=== PATIENT | male | born 1950 | race Caucasian/White ===

== ENCOUNTER → 2020-09-22 13:19 | Outpatient (BNVA) | payer MEDICARE, SELFPAY | PROVIDERS: PCP Family Medicine; Visit Provider Urology | DX: N40.1 Benign prostatic hyperplasia with lower urinary tract symptoms (principal); N13.8 Other obstructive and reflux uropathy; R35.0 Frequency of micturition; R35.1 Nocturia; Z79.899 Other long term (current) drug therapy | CPT/HCPCS: 51798; 99212 ==

== ENCOUNTER → 2020-10-20 13:01 | Outpatient (BNVA) | payer MEDICARE, SELFPAY | PROVIDERS: PCP Family Medicine; Visit Provider Urology | DX: R82.90 Unspecified abnormal findings in urine (principal) | CPT/HCPCS: 52000; 81002; 99212 ==

== ENCOUNTER → 2021-11-04 11:24 | Outpatient (BNVA) | payer MEDICARE, SELFPAY | PROVIDERS: PCP Family Medicine; Visit Provider Urology | DX: N40.1 Benign prostatic hyperplasia with lower urinary tract symptoms (principal); R35.1 Nocturia | CPT/HCPCS: Q3014 ==

== ENCOUNTER → 2022-11-03 13:05 | Outpatient (BNVA) | payer MEDICARE, SELFPAY | PROVIDERS: PCP Family Medicine; Visit Provider Urology | DX: N40.1 Benign prostatic hyperplasia with lower urinary tract symptoms (principal); R35.1 Nocturia; N48.6 Induration penis plastica | CPT/HCPCS: Q3014 ==

== ENCOUNTER 2023-10-24 08:07 | Outpatient (REF) | payer MEDICARE, SELFPAY ==
[2023-10-24 12:09] LABS: Prostate Specific Antigen 1.06 ng/mL (<0.05-4.0)
== END 2023-10-24 08:08 | disposition home or self-care (01) ==
LOC: HO.WFDLDS 08:07
PROVIDERS: Visit Provider Urology
DX: N40.1 Benign prostatic hyperplasia with lower urinary tract symptoms (principal); Z12.5 Encounter for screening for malignant neoplasm of prostate
CPT/HCPCS: 36415; 84153

== ENCOUNTER 2023-10-30 13:15 | Outpatient (AMB) | payer MEDICARE, SELFPAY ==
--- NOTE | 2023-10-30 13:26 | A.OFFVIS_ITS ---
Intake Intake Visit Reasons: 1Y PSA(set) Intake Note: Patient is Present for Follow Up PSA/PVR Urology Medication: Finasteride (Patient is no longer on terazosin due to making him dizzy) Antibiotic Allergies: None Blood Thinners: Xarelto PVR: 14 Compliants: none Allergies No Known Allergies Allergy (Verified 10/30/23 13:33) HPI HPI Comments History of Present Illness Details Hugh is a very pleasant male. He is a patient of Dr. Maya. Seen for the following urologic conditions - lower urinary tract symptoms - red scrotum syndrome Twelve month follow-up Feels he is adequately emptying Does have weakness of stream Not sufficiently bothered to warrant intervention currently Did not tolerate alfuzosin secondary to dizziness Lower Urinary Tract Symptoms:?Current visit is for further evaluation of, lower urinary tract symptoms, predominate irritative symptoms.?Current treatment includes medication, none ?Prior treatments include medication, alpha blockers, flomax/tamsulosin.?Prostate Symptom Score Moderate (9-19), Bother 4 ? 07/06 , Mild (0-8), Bother 3.?Symptoms include frequency, urgency, nocturia (>2) - every hour, and are progressing ? 07/06 , weak stream, nocturia (>2), and are stable.?PSA 10/05 2.1 ? 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 January 2016 .?Associated symptoms include None ?Physical exam findings include Improved erythema off penile shaft skin. Scrotal skin still has some erythema but this is slowly improving with use of immunosuppressant cream PFSH Medical History Peyronie's disease Rosacea History of kidney stones HTN (hypertension) Hyperlipidemia Prostatitis, chronic Nocturia Benign prostatic hyperplasia with lower urinary tract symptoms Scrotal erythema Scrotal pain Scrotal pruritus Surgical History History of surgery Review of Systems Const Denies chills and Denies fever(s) Card Reports no additional complaints and Denies syncope Resp Denies cough GI Denies abdominal pain and Denies heartburn Reports as per HPI and Denies change in libido Neuro Denies syncope Psych Denies change in libido Endo Denies change in libido Physical Exam Const General: cooperative, healthy appearing, comfortable and no acute distress Orientation/consciousness: patient oriented x3 HEENT Face and sinus: Yes normal facial exam Mouth: moist mucous membranes Neck Neck: Yes normal visual inspection, Yes full ROM and Yes trachea midline Chest Chest palpation & inspection: normal inspection of the chest Resp Effort & Inspection: normal respiratory effort, able to speak in complete sentences and no respiratory distress GI Inspection: Yes normal to inspection Back/Spine/Pelvis Cervical Spine: normal cervical lordosis Thoracic/Lumbar Spine: thoracic and lumbar spine normal to inspection Skin General skin exam: no rashes or lesions noted Neuro General: patient oriented x3, gait normal, tone normal and moves all extremities Extrem General: Yes normal to inspection and Yes capillary refill normal Office Procedures Post Void Residual Post Residual Void Post Void Residual (PVR): 14 04062-Cqyh Void Residual by ultrasound Results AMB Urinalysis, Automated UA Leukoctes 0 Sary/uL Last Edit by JOSHUA Bravo on 10/30/23 13:46 UA Nitrite Negative Last Edit by JOSHUA Bravo on 10/30/23 13:46 UA Urobilinogen 0.2 mg/dL Last Edit by JOSHUA Bravo on 10/30/23 13:4 6 UA Protein 0 mg/dL Last Edit by JOSHUA Bravo on 10/30/23 13:46 UA pH 6.0 Last Edit by JOSHUA Bravo on 10/30/23 13:46 UA Blood 0 Luis/uL Last Edit by JOSHUA Bravo on 10/30/23 13:46 UA Specific [place] 1.015 Last Edit by JOSHUA Bravo on 10/30/23 13: 46 UA Ketone Negative Last Edit by JOSHUA Bravo on 10/30/23 13:46 UA Bilirubin 0 mg/dL Last Edit by JOSHUA Bravo on 10/30/23 13:46 UA Glucose 0 mg/dL Last Edit by JOSHUA Bravo on 10/30/23 13:46 Assessment & Plan Assessment & Plan (1) Peyronie's disease: Code(s): N48.6 - Induration penis plastica (2) BPH loc w urin obs/LUTS: Code(s): N40.1 - Benign prostatic hyperplasia with lower urinary tract symptoms Plan Twelve month follow-up Orders: Orders AMB Post Void Residual by ultrasound Today N40.1 - Benign prostatic hyperplasia with lower urinary tract symptoms AMB Urinalysis Automated Today Z13.9 - Encounter for screening, unspecified Patient Instructions: Imaging studies, laboratory and physical exam results were discussed and reviewed in detail. No major barriers to patient understanding were identified. An opportunity to ask questions regarding the treatment plan was provided. All questions were answered. The patient expressed understanding and agreement with the above treatment plan. The patient is aware they should contact our office by phone for worsening of their current condition or the appearance of new urologic symptoms. Compliance is encouraged with any medications and followup testing that is ordered. It is a privilege to participate in the urologic care of your patient. If you have any questions or concerns regarding treatment for the above conditions, or other urologic issues, please do not hesitate to contact me. The office telephone contact is [phone]. This note is constructed using voice recognition software. While every effort has been made to ensure accuracy regulatory affairs intern errors may have been included. Yours sincerely, Dr Romero Baxter MD, [facility] - Urology Providers of Expert, Compassionate Care for the Genitourinary System Coding Level of Care Code Est Pt Level 4 (80461) Diagnoses Peyronie's disease N48.6 BPH loc w urin obs/LUTS N40.1 CPT Codes Post Residual Void - PVR CPT Code: 32128-Hvsw Void Residual by ultrasound ([id number])
== END 2023-10-30 14:04 | disposition home or self-care (01) ==
PROVIDERS: Visit Provider Urology
DX: N48.6 Induration penis plastica (principal); N40.1 Benign prostatic hyperplasia with lower urinary tract symptoms; Z13.9 Encounter for screening, unspecified
CPT/HCPCS: 99213

== ENCOUNTER → 2023-10-30 13:15 | Outpatient (BNVA) | payer MEDICARE, SELFPAY | PROVIDERS: Visit Provider Urology | DX: N40.1 Benign prostatic hyperplasia with lower urinary tract symptoms (principal); N48.6 Induration penis plastica | CPT/HCPCS: 51798; 81003; 99212 ==

== ENCOUNTER 2024-10-30 11:12 | Outpatient (AMB) | payer MEDICARE, SELFPAY ==
--- OUTSIDE RECORDS SUMMARY | 2024-10-30 11:14 | XMS_ITS | Encounter Summary ---
Author Name [facility] [place] Address [address] [place] [address] Support Name Relationship Address Phone JOSE BROWNLEE Next of Kin [address] [place] [phone] JOSE BROWNLEE Emergency Contact [address] [place] [phone] Insurance Providers: All historical and current Section Date Range: From patient's date of to the date document was created. This section includes the names of all active insurance providers for the patient. Insurance Provider Type of Coverage Plan Name Start of Policy Coverage End of Policy Coverage Group Number Member ID Insurance Provider's Telephone Number Policy Rodríguez's Name Patient's Relationship to Policy Rodríguez [place] SUPPLEMEN [place] MEDEX 2 Dec 20, 2014 [id number] AL BROWN[place]E [place] PATIENT [place] MEDICARE SUPPLEMEN LUCA [facility] Dec 20, 2014 [id number] [phone] AL BROWNLEE [place] PATIENT [place] PREFERRED PROVIDER ORGANIZAT ION (PPO) [facility] Aug 30, 2010 [id number] AL BROWNLEE [place] PATIENT [employer] ([id number]) PRESCRIPT ION MICRO [employer] Nov 19, 2011 [facility] [id number] [phone] AL BROWNLEE [place] PATIENT MEDICARE (WNR) MEDICARE (M) PART A May 19, 2013 PART A [id number] AL BROWNLEE [place] PATIENT MEDICARE (WNR) MEDICARE (M) PART B May 19, 2013 PART B [id number] AL BROWNLEE [place] PATIENT MEDICARE (WNR) MEDICARE (M) PART A May 19, 2013 PART A [id number] PAULETTE BROWNLEE JR PATIENT MEDICARE (WNR) MEDICARE (M) PART B May 19, 2013 PART B [id number] PAULETTE BROWNLEE JR PATIENT Selected Encounter This section includes the information on record at [place] for the Encounter. Date/Time Encounter Type Encounter Description Reason Provider Source Jul 11, 2024 10:45 AM Outpatient Encounter GENERAL INTERNAL MEDICINE ICD-10-CM Z00.8 Encounter for other general examination WILLARD IRIZARRY E Encounter Template Text not used by [place] Assessments - Encounter Diagnoses This section includes the primary and secondary diagnoses documented for the Encounter. Date/Time Primary/Secondary Diagnosis Diagnosis Name Provider Source Jul 14, 2024 02:40 PM PRIMARY Encounter for other general examination [facility]
--- OUTSIDE RECORDS SUMMARY | 2024-10-30 11:14 | XMS_ITS | Continuity of Care Document ---
Author Organization [facility] Address [address], [address] Floor, [address] [place] [id number] Care Team Providers Care Wood Fuel Pelletizer Name Role Phone Andrea XIAO, Matty Warner Primary Care Physician [phone] Encounter [facility] [id number] Date(s): 09/09/24 - 10/09/24 [facility] [address], [address] [place] [id number] Attending Physician: Manny Bowles Admitting Physician: AdmtrManny Referring Physician: AdmtrManny Encounter Type: Triage Allergies, Adverse Reactions, Alerts No Known Allergies Immunizations Given and Recorded Vaccine Date Status Refusal Reason influenza virus vaccine, inactivated 08/06/24 Flex rded influenza virus vaccine, inactivated 07/30/23 Flex rded influenza virus vaccine, inactivated 08/08/22 Flex rded influenza virus vaccine, inactivated 1 08/24/21 Re corded influenza virus vaccine, inactivated 07/13/20 Flex rded influenza virus vaccine, inactivated 08/04/19 Flex rded influenza virus vaccine, inactivated 08/21/17 Flex rded influenza virus vaccine, inactivated 09/03/15 Flex rded RSV vaccine, preF A-preF B, recombinant 06/30/24 R ecorded tetanus/diphtheria/pertussis, acel(Tdap) 11/07/22 Given SARS-CoV-2 (COVID-19) mRNA-1273 vaccine 06/27/22 G iven SARS-CoV-2 (COVID-19) mRNA-1273 vaccine 12/07/21 R ecorded SARS-CoV-2 (COVID-19) mRNA-1273 vaccine 2 01/27/21 Recorded SARS-CoV-2 (COVID-19) mRNA-1273 vaccine 01/26/21 R ecorded SARS-CoV-2 (COVID-19) mRNA-1273 vaccine 3 12/30/20 Recorded SARS-CoV-2 (COVID-19) mRNA-1273 vaccine 12/29/20 R ecorded pneumococcal 23-valent vaccine 08/14/16 Recorded pneumococcal 23-valent vaccine 08/14/16 Recorded pneumococcal 13-valent vaccine 07/30/15 Recorded pneumococcal 13-valent vaccine 07/30/15 Recorded zoster vaccine, inactivated 04/07/13 Recorded 1Result Comment: George Griffin 2Result Comment: [facility] [place] 3Result Comment: [facility] [place] Medications Alpha Lipoic 300 mg oral tablet 1 tablet = 300 mg, By Mouth, 2 times a day, # 30 tablet, 3 Refills, Maintenance, 09/09/24 2:20:00 PM EDT, Tablet, [facility]/pharmacy #[id number], Partial fill upon patient request if the prescription is for a schedule II opioid drug., 193, cm, 09/09/24 13:41:00 EDT, Height, 117.5, kg, 09/09/24 13:41:00 EDT, Dry Weight Start Date: 09/09/24 Status: Ordered Quantity: 30.0 Unit: tablet Repeat number: 4 amLODIPine 5 mg oral tablet 5 mg, 1, tablet, By Mouth, Daily, # 30 tablet, Refills 2, Tot. Refills 2, Maintenance, 09/04/24 5:17:00 PM EDT, Route to Pharmacy Electronically, [facility]/pharmacy #[id number], Partial fill upon patient requestif the prescription is for a schedule II opioid drug., 193, cm, 09/04/24 16:38:00 EDT, Height Start Date: 09/04/24 Status: Ordered Quantity: 30.0 Unit: tablet Repeat number: 3 atorvastatin 20 mg oral tablet 1 tablet, By Mouth, Daily, # 90 tablet, 3 Refills, Maintenance, 01/01/24 6:21:00 PM EST, [facility]/pharmacy #[id number], 193, cm, 12/27/23 15:08:00 EST, Height, 122.72, kg, 05/23/22 6:20:00 EDT, Dry Weight Start Date: 01/01/24 Status: Ordered Quantity: 90.0 Unit: tablet Repeat number: 4 chlorthalidone 25 mg oral tablet 1, tablet, By Mouth, Daily, # 90 tablet, Refills 1, Maintenance, 06/09/24 10:06:00 AM EDT, Route to Pharmacy Electronically, [id number], 193, cm, 05/30/24 12:55:00 EDT, Height Start Date: 06/09/24 Status: Ordered Quantity: 90.0 Unit: tablet Repeat number: 1 CPAP Machine See Instructions, # 1 each, Maintenance, AutoCPAP 8-14 cm H20, use Daily when sleeping, 11/15/21 12:47:00 PM EST, Supply Start Date: 11/15/21 Status: Ordered Quantity: 1.0 Unit: each Repeat number: 1 duloxetine 30 mg oral enteric coated capsule 1 capsule = 30 mg, By Mouth, Daily, # 30 capsule, 2 Refills, Maintenance, 09/04/24 5:22:00 PM EDT, [facility]/pharmacy #[id number], Partial fill upon patient request if the prescription is for a schedule II opioid drug., 193, cm, 09/04/24 16:38:00 EDT, Height Start Date: 09/04/24 Status: Ordered Quantity: 30.0 Unit: capsule Repeat number: 3 finasteride 5 mg oral tablet 0 Refills, Maintenance, 06/20/21 1:29:00 PM EDT, Partial fill upon patient request if the prescription is for a schedule II opioid drug. Start Date: 06/20/21 Status: Ordered Repeat number: 1 folic acid 1 mg oral tablet 1 mg, 1, tablet, By Mouth, Daily, # 30 tablet, Refills 0, Maintenance, 06/27/22 2:49:00 PM EDT, Partial fill upon patient request if the prescription is for a schedule II opioid drug. Start Date: 06/27/22 Status: Ordered Quantity: 30.0 Unit: tablet Repeat number: 1 levothyroxine 0.2 mg oral tablet 1 tablet, By Mouth, Daily, # 90 tablet, 0 Refills, Maintenance, 06/09/24 10:06:00 AM EDT, [id number], 193, cm, 05/30/24 12:55:00 EDT, Height Start Date: 06/09/24 Status: Ordered Quantity: 90.0 Unit: tablet Repeat number: 1 levothyroxine 0.2 mg oral tablet See Instructions, TAKE 1 TABLET BY MOUTH EVERY DAY, # 90 tablet, 3 Refills, Maintenance, 09/09/24 7:57:00 PM EDT, [id number], 193, cm, 09/09/24 13:41:00 EDT, Height, 117.5, kg, 09/09/24 13:41:00EDT, Dry Weight Start Date: 09/09/24 Status: Ordered Quantity: 90.0 Unit: tablet Repeat number: 4 losartan 100 mg oral tablet 1 tablet, By Mouth, Daily, REPLACES LISINOPRIL., # 90 tablet, 3 Refills, Maintenance, 09/06/24 10:47:00 AM EDT, [facility]/pharmacy #[id number], 193, cm, 09/04/24 16:38:00 EDT, Height Start Date: 09/06/24 Status: Ordered Quantity: 90.0 Unit: tablet Repeat number: 4 Metoprolol Succinate ER 50 mg oral tablet, extended release 1 tablet, By Mouth, Daily, # 90 tablet, 3 Refills, Maintenance, 07/18/24 7:53:00 AM EDT, [id number], 193, cm, 05/30/24 12:55:00 EDT, Height Start Date: 07/18/24 Status: Ordered Quantity: 90.0 Unit: tablet Repeat number: 1 Patanol 0.1% ophthalmic solution 1 drops, Eyes, Both, 2 times a day, # 5 mL, 2 Refills, Maintenance, 03/30/23 2:43:00 PM EDT, Ophth Solution, [facility]/pharmacy #[id number], Partial fill upon patient request if the prescription is for a scheduleII opioid drug., 1 drops Eyes, Both 2 times a day, 193, cm, 03/29/23 12:19:00 EDT, Height, 122.72, kg, 05/23/22 6:20:00 EDT, Dry Weight Start Date: 03/30/23 Status: Ordered Quantity: 5.0 Unit: mL Repeat number: 3 Vitamin B-12 250 mcg oral tablet 1 tablet, By Mouth, Daily, # 90 tablet, 3 Refills, Maintenance, 2/6/24 11:00:00 AM EST, [facility], 193, cm, 09/29/23 8:08:00 EST, Height, 122.72, kg, 05/23/22 6:20:00 EDT, Dry Weight Start Date: 12/25/23 Status: Ordered Quantity: 90.0 Unit: tablet Repeat number: 1 Xarelto 20 mg oral tablet See Instructions, TAKE 1 TABLET BY MOUTH DAILY BEFORE DINNER, # 90 tablet, 3 Refills, Maintenance, 12/26/23 7:58:00 AM EST, [id number], 193, cm, 09/29/23 8:08:00 EST, Height, 122.72, kg, 05/23/22 6:20:00 EDT, Dry Weight Start Date: 12/26/23 Status: Ordered Quantity: 90.0 Unit: tablet Repeat number: 1 Problem List Condition Confirmation Course Effective Dates Status Health Status Informant Abdominal wall pain in flank Confirmed Active Adenomatous polyp of colon Confirmed Active Adrenal incidentaloma Confirmed Active Adrenal nodule Confirmed Active Allergic conjunctivitis Confirmed Active Atrial fibrillation Confirmed Active Benign essential hypertension Confirmed Active Benign prostatic hyperplasia Confirmed Active Cat scratch of wrist Confirmed Active Chronic obstructive lung disease Confirmed Active B12 deficiency Confirmed Active Vitamin B12 deficiency Confirmed Active Disorder of esophagus Confirmed Active Dermatitis Confirmed Active Edema Confirmed Active Hypothyroidism Confirmed Active JORDI (acute kidney injury) Confirmed Active Lung mass Confirmed Active Eyelid myokymia Confirmed Active Obese class I Confirmed Active Obstructive sleep apnea Confirmed Active Paroxysmal atrial fibrillation Confirmed Active Peripheral neuropathy Confirmed Active Hypercholesterolemia Confirmed Active TSH elevation Confirmed Active Rosacea Confirmed Active Simple renal cyst Confirmed Active Sleep apnea Confirmed Active Spasm of cerebral arteries Confirmed Active Splenomegaly Confirmed Active Type 2 diabetes mellitus Confirmed Active Social History Social History Type Response Smoking Status Former smoker, quit more than 30 days ago; Other: quit in the early ; entered on: 07/30/19 Sex Sex Representation Male (finding) Patient Care team information Care Team Personnel Name: Matty Mendez MD Position: [facility] Physician - Primary Care Member Role: PCP Address: [address] [place] [id number] Telecom: Name: Blair Cueto RN Position: S RN Member Role: Primary Care Nurse Name: Chi Kendall RN Position: S RN Member Role: Primary Care Nurse Name: Tammy Flores RN Position: S RN Member Role: Primary Care Nurse Name: Caitlin Mead RN Position: S RN Member Role: Primary Care Nurse Care Team Related Persons Name: JOSE BROWNLEE Name: OCTAVOI BROWNLEE Name: MARBELLA PIERSON Insurance Providers Guarantor name: PAULETTE [facility] Information #: 1 Payer: MEDICARE PART B OUTPT Member Number: NA Policy Number: NA Group Number: NA Health Plan Information #: 2 Payer: MEDEX Member Number: NA Policy Number: NA Group Number: NA
--- OUTSIDE RECORDS SUMMARY | 2024-10-30 11:14 | XMS_ITS | Continuity of Care Document ---
Author Name [facility] Organization [facility] Care Team Providers Care Chief Of Anesthesiology Name Role Phone [facility] Unavailable Unavailable Problems Combined list of problems from Department of [facility] and [facility] facilities. It does not include entries that were removed or entered in error. Problem Status Onset Date Problem Type Date of Resolution Comments Source Benign paroxysmal positional vertigo (ICD-9-CM 386.11) Active Condition [place] Fractures, Closed Active Condition Ju l 2009 Entered By: TE LEMUS Comment: left foot s/p surgical repair [place] HTN Active Condition [place] Hyperglycemia Active Condition [facility] Rosacea Active Condition [place] Viral hepatitis B without mention of hepatic coma, without mention of hepatitis Active Condition [place] Diagnosis: ICD-10-CM Z00.8 Encounter for other general examination Active Diagnosis [facility] Medications Combined list of outpatient medications from Department of [facility] and [facility] Affairs facilities.Medications provided include 1) outpatient medications from the last 15 months, and 2) patient-reported medications. Medication Details Route Status Patient Instructions Prescription Expires Prescription Number Last Dispense Date Ordering Provider Order Date Order Qty Source AMLODIPINE BESYLATE 5MG TAB TAKE ONE TABLET BY MOUTH DAILY ORAL ACTIVE JERZY LEMUS [place] I[place] ASPIRIN 81MG TAB,EC TAKE ONE TABLET BY MOUTH DAILY ORAL ACTIVE JERZY L[place] DOXYCYCLINE TAB TAKE 20MG BY MOUTH TWICE DAILY ORAL ACTIVE JERZY L[place] HYDROCHLORO THIAZIDE 12.5MG/LUDA NOPRIL 20MG TAB TAKE ONE TABLET BY MOUTH DAILY ORAL ACTIVE JERZY LEMUS [place] I[place] SIMVASTATIN 40MG TAB TAKE ONE-HALF TABLET BY MOUTH DAILY ORAL ACTIVE JERZY L[place] TERAZOSIN HCL 2MG CAP TAKE 1 CAPSULE BY MOUTH DAILY ORAL ACTIVE JERZY LEMUS [place] Immunizations Combined list of available immunizations from the Department of Defense and Veterans Affairs facilities. Immunization Series Date Given Administered By Site Reaction Lot Number CVX Code Drug Shoe Cutter Status Comments Source FLU,3 YRS (HISTORICAL) 2012 88 complet ed Site: Left Deltoid [place] TD(ADULT) UNSPECIFIED FORMULATION 2005 139 complet ed [place] [facility] Encounters Combined list of: 1) Encounters from Department of Veterans Affairs facilities going back up to thelast 18 months. 2) Encounters from the Department of Defense facilities going back up to 280 months. Location Location Details Encounter Type Encounter Number Reason For Visit Attending Provider ADM Date DC Date Status Disposition Source [facility] Outpatient Encounter [id number] Diagnos is: ICD-10- CM Z00.8 Encount er for other general examina tion
MARLI IRIZARRY 07/11 [facility] Social History Combined list of available smoking, tobacco, and other social history from Department of Defense and Veterans Affairs facilities. Social History Type Response Date Comment Sourc e Tobacco smoking status NHIS QUIT TOBACCO USE > 7 YEARS AGO 06/07/2010 quit 15 yrs ago MARUIZIO
--- NOTE | 2024-10-30 11:17 | MHC.OFFVIS ---
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 He is a patient of Dr. Maya. Seen for the following urologic conditions - lower urinary tract symptoms - red scrotum syndrome Yearly follow-up PVR 0 Remains on finasteride PSA has been previously well controlled May reduce finasteride to Sunday, Sunday, Sunday Lost 50 lb over last year. He stopped drinking his calories and reduced his sugar intake. He is very happy. Lower Urinary Tract Symptoms:?Current visit is for further evaluation of, lower urinary tract symptoms, predominate irritative symptoms.?Current treatment includes medication, none ?Prior treatments include medication, alpha blockers, flomax/tamsulosin.?Prostate Symptom Score Moderate (9-19), Bother 4 ? 07/06 , Mild (0-8), Bother 3.?Symptoms include frequency, urgency, nocturia (>2) - every hour, and are progressing ? 07/06 , weak stream, nocturia (>2), and are stable.?PSA 10/05 2.1 ? 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 January 2016 .?Associated symptoms include None ?Physical exam findings include Improved erythema off penile shaft skin. Scrotal skin still has some erythema but this is slowly improving with use of immunosuppressant cream [facility] Medical History Peyronie's disease Rosacea History of kidney stones HTN (hypertension) Hyperlipidemia Prostatitis, chronic Nocturia Benign prostatic hyperplasia with lower urinary tract symptoms Scrotal erythema Scrotal pain Scrotal pruritus Surgical History History of surgery Review of Systems Const Denies chills and Denies fever(s) Card Reports no additional complaints and Denies syncope Resp Denies cough GI Denies abdominal pain and Denies heartburn Reports as per HPI and Denies change in libido Neuro Denies syncope Psych Denies change in libido Endo Denies change in libido Physical Exam Const General: cooperative, healthy appearing, comfortable and no acute distress Orientation/consciousness: patient oriented x3 HEENT Face and sinus: Yes normal facial exam Mouth: moist mucous membranes Neck Neck: Yes normal visual inspection, Yes full ROM and Yes trachea midline Chest Chest palpation & inspection: normal inspection of the chest Resp Effort & Inspection: normal respiratory effort, able to speak in complete sentences and no respiratory distress GI Inspection: Yes normal to inspection Back/Spine/Pelvis Cervical Spine: normal cervical lordosis Thoracic/Lumbar Spine: thoracic and lumbar spine normal to inspection Skin General skin exam: no rashes or lesions noted Neuro General: patient oriented x3, gait normal, tone normal and moves all extremities Extrem General: Yes normal to inspection and Yes capillary refill normal Office Procedures Post Void Residual Post Residual Void Post Void Residual (PVR): 0 [id number] Void Residual by ultrasound Assessment & Plan Assessment & Plan (1) BPH loc w urin obs/LUTS: Code(s): N40.1 - Benign prostatic hyperplasia with lower urinary tract symptoms Category: Medical (2) Nocturia: Code(s): R35.1 - Nocturia Category: Medical (3) Peyronie's disease: Code(s): N48.6 - Induration penis plastica Category: Medical Plan Twelve month follow-up PSA Orders: Orders AMB Urinalysis Automated Today Z13.9 - Encounter for screening, unspecified Prostate Specific Antigen 364 Days N40.1 - Benign prostatic hyperplasia with lower urinary tract symptoms Patient Instructions: Imaging studies, laboratory and physical exam results were discussed and reviewed in detail. No major barriers to patient understanding were identified. An opportunity to ask questions regarding the treatment plan was provided. All questions were answered. The patient expressed understanding and agreement with the above treatment plan. The patient is aware they should contact our office by phone for worsening of their current condition or the appearance of new urologic symptoms. Compliance is encouraged with any medications and followup testing that is ordered. It is a privilege to participate in the urologic care of your patient. If you have any questions or concerns regarding treatment for the above conditions, or other urologic issues, please do not hesitate to contact me. The office telephone contact is [phone]. This note is constructed using voice recognition software. While every effort has been made to ensure accuracy molding line assistant errors may have been included. Yours sincerely, Dr Romero Baxter MD, [facility] - Urology Providers of Expert, Compassionate Care for the Genitourinary System Coding Level of Care Code Est Pt Level 4 (29914) Diagnoses BPH loc w urin obs/LUTS N40.1 Nocturia R35.1 Peyronie's disease N48.6 CPT Codes Post Residual Void - PVR CPT Code: 23279-[id number] Void Residual by ultrasound ([id number])
== END 2024-10-30 11:52 | disposition home or self-care (01) ==
PROVIDERS: PCP Family Medicine; Visit Provider Urology
DX: N40.1 Benign prostatic hyperplasia with lower urinary tract symptoms (principal); R35.1 Nocturia; N48.6 Induration penis plastica
CPT/HCPCS: 99214

== ENCOUNTER → 2024-10-30 11:12 | Outpatient (BNVA) | payer MEDICARE, SELFPAY | PROVIDERS: PCP Family Medicine; Visit Provider Urology | DX: N40.1 Benign prostatic hyperplasia with lower urinary tract symptoms (principal); N48.6 Induration penis plastica; R35.1 Nocturia | CPT/HCPCS: 51798; 99212 ==

== ENCOUNTER 2025-10-12 08:37 | Outpatient (REF) | payer MEDICARE, SELFPAY ==
[2025-10-12 12:10] LABS: Prostate Specific Antigen 0.96 ng/mL (<0.05-4.0)
== END 2025-10-12 08:38 | disposition home or self-care (01) ==
LOC: HO.WFDLDS 08:37
PROVIDERS: Visit Provider Urology
DX: N40.1 Benign prostatic hyperplasia with lower urinary tract symptoms (principal); Z12.5 Encounter for screening for malignant neoplasm of prostate
CPT/HCPCS: 36415; 84153

== ENCOUNTER 2025-11-05 11:04 | Outpatient (AMB) | payer MEDICARE, SELFPAY ==
--- NOTE | 2025-11-05 11:08 | MHC.OFFVIS ---
Intake Visit Reasons: 1y/ PSA SET UA Intake Note: Reason for Visit: PVR/PSA Follow Up Urology Meds: Amitriptyline, Finasteride, Tamsulosin Blood Thinners: None Labs: PSA 0.96 (10/12/2025) Imaging: nONE Last PVR: 0ML Accompanied by: Self / Same As Patient Allergies No Known Allergies Allergy (Verified 11/05/25 11:35) Medication List - Last Reconciled 11/05/25 by Romero Baxter MD atorvastatin 20 mg PO DAILY cyanocobalamin (vitamin B-12) 1,000 mcg PO DAILY diltiazem HCl ER 360 mg PO DAILY docusate sodium 100 mg PO BID finasteride 5 mg PO DAILY 90 days flecainide 100 mg PO BID flu vac 2020 [id number](PF) 60 mcg (15 mcg x 4)/0.5 mL 0.5 mL IM DIRECTED folic acid 1 mg PO DAILY gabapentin mg PO TID PRN levothyroxine 175 mcg PO DAILY lisinopril 20 mg PO DAILY losartan 100 mg PO DAILY metformin ER 500 mg PO DAILY metoprolol succinate ER 50 mg PO DAILY pantoprazole 40 mg PO DAILY rivaroxaban (Xarelto) 15 mg PO DAILY HPI Comments Details: Hugh is a very pleasant male. He is a patient of Dr. Maya. Seen for the following urologic conditions - lower urinary tract symptoms - red scrotum syndrome Yearly follow-up PVR 0 Remains on 3 times a week finasteride Continue yearly surveillance Lower Urinary Tract Symptoms:?Current visit is for further evaluation of, lower urinary tract symptoms, predominate irritative symptoms.?Current treatment includes medication, none ?Prior treatments include medication, alpha blockers, flomax/tamsulosin.?Prostate Symptom Score Moderate (9-19), Bother 4 ? 07/06 , Mild (0-8), Bother 3.?Symptoms include frequency, urgency, nocturia (>2) - every hour, and are progressing ? 07/06 , weak stream, nocturia (>2), and are stable.?PSA 10/05 2.1 ? 01/07 2.0, 10/10 0.9, 11/10 1.1, 11/12 1.0 ?Testing at next visit will include bladder scan.?Treatment plan no current medications Red scrotum syndrome - very slow improvement with doxycycline?This has occurred for? January 2016 .?Associated symptoms include None ?Physical exam findings include Improved erythema off penile shaft skin. Scrotal skin still has some erythema but this is slowly improving with use of immunosuppressant cream PFSH Medical History Peyronie's disease Rosacea History of kidney stones HTN (hypertension) Hyperlipidemia Prostatitis, chronic Nocturia Benign prostatic hyperplasia with lower urinary tract symptoms Scrotal erythema Scrotal pain Scrotal pruritus Surgical History History of surgery Review of Systems Const Denies chills and Denies fever(s) Card Reports no additional complaints and Denies syncope Resp Denies cough GI Denies abdominal pain and Denies heartburn Reports as per HPI and Denies change in libido Neuro Denies syncope Psych Denies change in libido Endo Denies change in libido Physical Exam Const General: cooperative, healthy appearing, comfortable and no acute distress Orientation/consciousness: patient oriented x3 HEENT Face and sinus: Yes normal facial exam Mouth: moist mucous membranes Neck Neck: Yes normal visual inspection, Yes full ROM and Yes trachea midline Chest Chest palpation & inspection: normal inspection of the chest Resp Effort & Inspection: normal respiratory effort, able to speak in complete sentences and no respiratory distress GI Inspection: Yes normal to inspection Back/Spine/Pelvis Cervical Spine: normal cervical lordosis Thoracic/Lumbar Spine: thoracic and lumbar spine normal to inspection Skin General skin exam: no rashes or lesions noted Neuro General: patient oriented x3, gait normal, tone normal and moves all extremities Extrem General: Yes normal to inspection and Yes capillary refill normal Assessment & Plan Assessment & Plan (1) Nocturia: Code(s): R35.1 - Nocturia Category: Medical (2) Peyronie's disease: Code(s): N48.6 - Induration penis plastica Category: Medical Plan 12 month follow-up PSA Orders: Orders Prostate Specific Antigen 12 Months N40.1 - Benign prostatic hyperplasia with lower urinary tract symptoms Medications: Refilled finasteride 5 mg PO DAILY 90 tabs 1RF 90 days R35.1 - Nocturia, N40.1 - Benign prostatic hyperplasia with lower urinary tract symptoms, R33.9 - Retention of urine, unspecified Patient Instructions: This note is constructed using voice recognition software. While every effort has been made to ensure accuracy programmer analyst health it errors may have been included. Imaging studies, laboratory and physical exam results were discussed and reviewed in detail. No major barriers to patient understanding were identified. An opportunity to ask questions regarding the treatment plan was provided. All questions were answered. The patient expressed understanding and agreement with the above treatment plan. The patient is aware they should contact our office by phone for worsening of their current condition or the appearance of new urologic symptoms. Compliance is encouraged with any medications and followup testing that is ordered. It is a privilege to participate in the urologic care of your patient. If you have any questions or concerns regarding treatment for the above conditions, or other urologic issues, please do not hesitate to contact me. The office telephone contact is [phone]. Sincerely, Dr Romero Baxter MD, [facility] - Urology Compassionate Specialist Care for the Genitourinary System Coding Level of Care Code Est Pt Level 4 (46682) Diagnoses Nocturia R35.1 Peyronie's disease N48.6
== END 2025-11-05 12:04 | disposition home or self-care (01) ==
LOC: HO.HUSH 11:05
PROVIDERS: PCP Family Medicine; Visit Provider Urology
DX: R35.1 Nocturia (principal); N48.6 Induration penis plastica
CPT/HCPCS: 99214

== ENCOUNTER → 2025-11-05 11:04 | Outpatient (BNVA) | payer MEDICARE, SELFPAY | PROVIDERS: PCP Family Medicine; Visit Provider Urology | DX: R35.1 Nocturia (principal); N48.6 Induration penis plastica | CPT/HCPCS: 99212 ==